=== PATIENT | female | born 1985 | race Two or more races ===

== ENCOUNTER 2017-12-14 06:54 | Inpatient (IN) | payer SELFPAY ==
[2017-12-14] MEDS: IV RINGERS,LACTATED 1000ML 1,000 ML IV ×2 (07:27→15:30)
[2017-12-14] MEDS ORDERED: TERBUTALINE 1 MG/ML VIAL. SQ (07:30)
[2017-12-14] MEDS ORDERED: ACETAMINOPHEN 325 MG TABLET. PO ×2 (07:30→08:15)
[2017-12-14] MEDS ORDERED: ONDANSETRON PF 4 MG/2 ML VIAL. IV (07:30)
[2017-12-14] MEDS ORDERED: LIDOCAINE 1% PF 30 ML VIAL. INJ (07:30)
[2017-12-14] MEDS ORDERED: 0.9 % SODIUM CHLORIDE 10 ML DISP.SYRIN. IV ×2 (07:30→08:15)
[2017-12-14] MEDS ORDERED: OXYTOCIN 30 UNIT/500 ML PREMIX 500 ML IV ×3 (07:30→08:15)
[2017-12-14] MEDS ORDERED: OXYTOCIN PREMIX 30 UNIT/500 ML BAG. IV (07:30)
[2017-12-14] MEDS: DINOPROSTONE 10 MG SUPP.VAG VG (07:30)
[2017-12-14 07:31] LABS: ADD MAN DIFF? NO
[2017-12-14 07:38] LABS: BASO # 0.1 x10^3/uL (0.0-0.2); BASO % 1 % (0-3); EOS # 0.1 x10^3/uL (0.0-0.7); EOS % 1 % (0-3); HEMATOCRIT 44.9 % (36.0-47.0); HEMOGLOBIN 15.5 g/dL (12.0-15.5); LYMPH % 28 % (24-48); MEAN CORPUSCULAR HEMOGLOBIN 33 pg (25-35); MEAN CORPUSCULAR HGB CONC 35 g/dL (31-37); MEAN CORPUSCULAR VOLUME 95 fL (79-100); MONO # 0.7 x10^3/uL (0.0-1.1); MONO % 7 % (0-9); NEUT # 6.7 x10^3uL (1.8-7.7); NEUT % 64 % (31-73); PLATELET COUNT 134 x10^3/uL (140-400); RED CELL DISTRIBUTION WIDTH 12.4 % (11.5-14.5); WHITE BLOOD COUNT 10.5 x10^3/uL (4.0-11.0)
[2017-12-14] MEDS ORDERED: PHENYLEPH/MINERAL OIL/PETROLAT RECTAL OINTMENT 28GM TUBE. RC (08:15)
[2017-12-14] MEDS ORDERED: BENZOCAINE 20% TOPICAL AEROSOL SPRAY 57GM CAN. TP (08:15)
[2017-12-14] MEDS ORDERED: diphenhydrAMINE HCL 25 MG CAPSULE PO (08:15)
[2017-12-14] MEDS ORDERED: MAGNESIUM HYDROXIDE 2,400 MG/30 ML ORAL.SUSP. PO (08:15)
[2017-12-14] MEDS ORDERED: SIMETHICONE 80 MG TAB.CHEW PO (08:15)
[2017-12-14] MEDS ORDERED: MMR per PROTOCOL. MC (08:15)
[2017-12-14] MEDS ORDERED: HYDROCORTISONE 1% TOPICAL OINTMENT 30GM TUBE. TP (08:15)
[2017-12-14] MEDS ORDERED: MAG HYDROX/ALUMINUM HYD/SIMETH 30 ML ORAL.SUSP PO (08:15)
[2017-12-14] MEDS ORDERED: ZOLPIDEM 5 MG TABLET. PO (08:15)
[2017-12-14] MEDS: IBUPROFEN 800 MG TABLET. PO ×2 (09:57→17:55)
[2017-12-14] MEDS: IBUPROFEN 600 MG TABLET. PO ×2 (12:00→18:00)
[2017-12-14] MEDS: DOCUSATE SODIUM 100 MG CAPSULE. PO (17:54)
[2017-12-14] MEDS: oxyCODONE/APAP 5/325 1 TAB TABLET PO (21:32)
[2017-12-14 23:07] LABS: RPR Non Reactive (Non Reactive)
[2017-12-15] MEDS: IBUPROFEN 600 MG TABLET. PO ×4 (06:00→18:00)
[2017-12-15 06:29] LABS: HEMATOCRIT 40.3 % (36.0-47.0)
[2017-12-15] MEDS: FERROUS SULFATE 325 MG TABLET. PO (07:11)
[2017-12-15] MEDS: DOCUSATE SODIUM 100 MG CAPSULE. PO (08:06)
[2017-12-15] MEDS: IBUPROFEN 800 MG TABLET. PO (08:07)
[2017-12-16] MEDS: IBUPROFEN 600 MG TABLET. PO ×2 (03:29→06:00)
== END 2017-12-16 14:50 | disposition home or self-care (01) | DRG 775 ==
LOC: 3 SO LND 06:54 → 3 NORTH 14:17
PROC: 10E0XZZ Delivery of Products of Conception, External Approach (ICD-10-PCS; principal; 2017-12-14)
DX: O48.0 Post-term pregnancy (principal); Z37.0 Single live birth
CPT/HCPCS: 36415; 85014; 85025; 86593; 86762; 86850; 86900; 86901; J2590; J7120